=== PATIENT | female | born 1945 | race Caucasian/White ===

== ENCOUNTER 2021-07-24 11:49 | Day surgery (SDC) | payer OTHER, MEDICARE ==
[~2021-07-24] VITALS: Ht 157.5 cm; Wt 68.9 kg
[2021-07-24] VITALS (8 sets, daily range): BP systolic 119–149; BP diastolic 66–82
[~2021-07-24 11:49] MED LIST: ATOR20TA66 PO; DOXE50CA4 PO; FLUO40CA PO; GLYB6TAB3 PO; METF750T46 PO; PANT40TA54 PO; VANCOMYCIN INJ 1000 MG in NORMAL SALINE 250ml IV.SOLN IV ONE; [UNRECOGNIZED DRUG - OTHER]; cefazolin/dext.iso 2gm/50ml IV ONE; famotidine 20mg tablet PO ONE; ringers solution, lacted 1,000 ML IV SCH
[2021-07-24 13:04] LABS: ALBUMIN 3.7 G/DL (3.4-5.0); ALBUMIN/GLOBULIN RATIO 1.1 (1.1-1.5); ALKALINE PHOSPHATASE 92 IU/L (46-116); BLOOD UREA NITROGEN 17 MG/DL (7-18); BUN/CREATININE RATIO 16.2 (6.6-38.0); CHLORIDE 103 MMOL/L (99-107); CREATININE 1.05 MG/DL (0.40-0.90); PRE OP ALT 25 U/L (30-65); PRE OP ANION GAP 12 (8-16); PRE OP AST 10 U/L (10-37); PRE OP BILIRUB, TOTAL 0.3 MG/DL (0.0-1.0); PRE OP GLUCOSE 146 MG/DL (70-104); PRE OP POTASSIUM 4.1 MMOL/L (3.4-5.1); PRE OP SODIUM 139 MMOL/L (135-145); TOTAL CARBON DIOXIDE 23.9 MMOL/L (24-32); TOTAL PROTEIN 7.1 G/DL (6.4-8.2); eGFR 51 ML/MIN
[2021-07-24 13:08] LABS: BASOPHILS # (AUTO) 0.1 X10'3 (0-0.2); BASOPHILS % (AUTO) 1.1 % (0-1); EOSINOPHILS # (AUTO) 0.2 X10'3 (0-0.9); EOSINOPHILS % (AUTO) 2.6 % (0-6); LYMPHOCYTES # (AUTO) 2.1 X10'3 (1.1-4.8); LYMPHOCYTES % (AUTO) 28.2 % (21-51); MEAN CORPUSCULAR HEMOGLOBIN 28.8 PG (27.0-31.0); MEAN CORPUSCULAR HGB CONC 32.8 g/dL (33.0-36.5); MEAN CORPUSCULAR VOLUME 87.6 FL (78-98); MEAN PLATELET VOLUME 7.5 FL (7.4-10.4); MONOCYTES # (AUTO) 0.6 X10'3 (0-0.9); MONOCYTES % (AUTO) 7.6 % (2-12); NEUTROPHILS # (AUTO) 4.5 X10'3 (1.8-7.7); NEUTROPHILS % (AUTO) 60.5 % (42-75); PRE OP HEMATOCRIT 34.6 % (35.0-45.0); PRE OP HEMOGLOBIN 11.4 g/dL (12.0-16.0); PRE OP PLATELET COUNT 361 X10'3 (140-440); RED BLOOD COUNT 3.95 X10'6 (4.20-5.60); RED CELL DISTRIBUTION WIDTH 15.7 % (11.5-14.5)
[2021-07-24] MEDS ORDERED: fentaNYL/PF 50MCG/1 ML 2ML syringe ONE (13:20)
[2021-07-24] MEDS ORDERED: midazolam 1 mg/ML 2ml injection ONE (13:20)
[2021-07-24] MEDS ORDERED: BUPIVAcaine/PF 2.5 mg/ml (0.25%) 30ml vial ONE (13:23)
[2021-07-24] MEDS ORDERED: propofol inj 20 ML IV ONE ×2 (13:44)
[2021-07-24] MEDS ORDERED: bacitracin 15gm ointment TP ONE (13:53)
--- NOTE | 2021-07-24 14:03 | NUR ---
Received from OR via , accompanied by Anesthesiologist DR MONACO and report given by Anesthesiolgist. PT PRESENTS WITH 20G RIGHT FOREARM, RIGHT FOOT SREENEIDAING AND BOOT ELLIOTT AND DANIELLE SIMPSON. Addendum: 07/24/21 at 1533 by Indira Hutchinson RN, RN Amended: Links added.
--- NOTE | 2021-07-24 15:03 | NUR ---
. I HAVE REVIEWED D/C INSTRUCTIONS WITH PATIENT and they have verbalized understanding patient d/c home with all belongings and family gave transport home. Addendum: 07/24/21 at 1513 by Indira Hutchinson RN, RN Amended: Links added.
== END 2021-07-24 15:03 | disposition home or self-care (01) ==
LOC: OR 11:49
PROVIDERS: ATTEND Podiatrist Foot & Ankle Surgery
DX: S92.591A Other fracture of right lesser toe(s), initial encounter for closed fracture (principal); M21.6X1 Other acquired deformities of right foot; I10 Essential (primary) hypertension; G89.4 Chronic pain syndrome; E66.9 Obesity, unspecified; Z68.26 Body mass index [BMI] 26.0-26.9, adult; F41.9 Anxiety disorder, unspecified; F32.89 Other specified depressive episodes; E11.51 Type 2 diabetes mellitus with diabetic peripheral angiopathy without gangrene; Z90.49 Acquired absence of other specified parts of digestive tract; Z20.822 Contact with and (suspected) exposure to COVID-19; Z79.899 Other long term (current) drug therapy; Z90.710 Acquired absence of both cervix and uterus; Z98.890 Other specified postprocedural states; Z96.653 Presence of artificial knee joint, bilateral; Z87.891 Personal history of nicotine dependence; Z79.84 Long term (current) use of oral hypoglycemic drugs; X58.XXXA Exposure to other specified factors, initial encounter; Y93.89 Activity, other specified; Y92.89 Other specified places as the place of occurrence of the external cause; Y99.8 Other external cause status
CPT/HCPCS: 28270; 28525; 36415; 73620; 76000; 80053; 85025; 87635; 93005; A6222; C1713; C9803; J0690; J2250; J2704; J3010; J3490; J7030; J7120; Z7506; Z7512; A4215; A4618; A6253; A6449; A7000